=== PATIENT | male | born 1990 | race African-American/Black ===

== ENCOUNTER 2019-04-24 01:38 | Emergency (ER) | payer SELFPAY ==
[~2019-04-24] VITALS: Ht 190.5 cm; Wt 127.0 kg
[2019-04-24] MEDS ORDERED: SODIUM CHLORIDE 0.9% 1,000 ML IV ONE (03:00)
[2019-04-24] MEDS ORDERED: ONDANSETRON 4MG ODT PO ONE (03:00)
[2019-04-24] MEDS ORDERED: MORPHINE SULFATE 4 MG/ML CPJ (NOT FOR IM USE) IV ONE (03:00)
[2019-04-24 03:14] LABS: HEMATOCRIT 37.1 % (42.0-52.0); HEMOGLOBIN 12.3 g/dL (14.0-18.0); MEAN CORPUSCULAR HEMOGLOBIN 26.5 pg (28.0-32.0); PLATELET 174 x1000/uL (130-400); RED BLOOD CELL COUNT 4.64 mill/uL (4.7-6.1)
[2019-04-24 03:21] LABS: CHLORIDE 111 mEq/L (98-107)
[2019-04-24 03:22] LABS: INR 0.9; PARTIAL THROMBOPLASTIN TIME 26.6 sec (23.4-31.0); PROTHROMBIN TIME 10.2 sec (9.6-11.0)
[2019-04-24 04:01] VITALS: BP 142/79
== END 2019-04-24 04:06 | disposition home or self-care (01) ==
LOC: ER 01:38
DX: G89.29 Other chronic pain (principal); D57.1 Sickle-cell disease without crisis; G40.909 Epilepsy, unspecified, not intractable, without status epilepticus; I10 Essential (primary) hypertension; E03.9 Hypothyroidism, unspecified; F17.210 Nicotine dependence, cigarettes, uncomplicated; E66.9 Obesity, unspecified; Z86.73 Personal history of transient ischemic attack (TIA), and cerebral infarction without residual deficits; Z68.35 Body mass index [BMI] 35.0-35.9, adult; Z86.718 Personal history of other venous thrombosis and embolism; Z79.01 Long term (current) use of anticoagulants
CPT/HCPCS: 36415; 71045; 80053; 85027; 85044; 85610; 85730; 93005; 96374; 99285; J2270; Q0162